=== PATIENT | male | born 1960 | race Caucasian/White ===

== ENCOUNTER 2016-10-11 10:22 | Inpatient (IN) | payer OTHER ==
[~2016-10-11] VITALS: Ht 185.4 cm; Wt 83.0 kg
[~2016-10-11 10:22] MED LIST: ALLOPURINOL100 MG PO; CITRATE OF MAG296 ML PO; HYDROCODON-ACE1 EAC7 PO; KEFLEX500 MG PO; LORATADINE10 M2 PO; NEURONTIN300 MG PO; PERCOCET 5/31 TABLET PO; TRAMADOL HCL50 MG PO; TYLENOL WITH C1 EACH PO
[2016-10-19 11:17] VITALS: BP 117/75
[2016-10-19 19:30] VITALS: BP 133/76
[2016-10-19 22:41] VITALS: BP 148/89
[2016-10-20 02:39] VITALS: BP 132/84
[2016-10-20 06:47] LABS: HEMATOCRIT 37.5 % (38.0-50.0); MCHC 35.5 G/DL (30.0-36.0); MCV 101.6 FL (86-99); MEAN PLAT.VOLUME 9.5 uM^3 (9.0-12.4); PLATELET COUNT 133 K/uL (156-360); RBC DIS.WIDTH-CV 12.2 % (11.8-14.6); RBC DIS.WIDTH-SD 44.9 % (39-53)
[2016-10-20 06:49] LABS: RED BLOOD COUNT 3.69 M/uL (4.00-5.50); WHITE BLOOD COUNT 6.3 K/uL (4.1-10.2)
[2016-10-20 07:09] LABS: ANION GAP 6 MEQ/L (2-14); CHLORIDE 103 MEQ/L (99-109); GFR ESTIMATE (CALCULATED) > 59 mL/min/; MAGNESIUM 1.7 mg/dl (1.3-2.7); POTASSIUM 4.2 MEQ/L (3.7-5.4); SAMPLE HEMOLYSIS CHECK 0; SAMPLE ICTERIC CHECK 0; SAMPLE LIPEMIA CHECK 0; SODIUM 135 MEQ/L (136-147); UREA NITROGEN (BUN) 5 mg/dL (9-23)
[2016-10-20 07:11] LABS: GLUCOSE 133 mg/dL (70-99)
[2016-10-20 08:05] VITALS: BP 106/66
[2016-10-20 10:56] VITALS: BP 111/70
[2016-10-20 16:17] VITALS: BP 116/78
[2016-10-20 19:12] VITALS: BP 119/72
[2016-10-20 23:40] VITALS: BP 129/77
[2016-10-21 04:20] VITALS: BP 127/81
[2016-10-21 06:12] LABS: HEMATOCRIT 40.2 % (38.0-50.0); MCH 34.3 PG (29.0-34.0); MCHC 33.1 G/DL (30.0-36.0); MCV 103.6 FL (86-99); MEAN PLAT.VOLUME 8.8 uM^3 (9.0-12.4); PLATELET COUNT 134 K/uL (156-360); RBC DIS.WIDTH-CV 12.8 % (11.8-14.6); RED BLOOD COUNT 3.88 M/uL (4.00-5.50); WHITE BLOOD COUNT 6.2 K/uL (4.1-10.2)
[2016-10-21 06:33] LABS: ANION GAP 5 MEQ/L (2-14); CHLORIDE 103 MEQ/L (99-109); GFR ESTIMATE (CALCULATED) > 59 mL/min/; GLUCOSE 109 mg/dL (70-99); MAGNESIUM 1.7 mg/dl (1.3-2.7); POTASSIUM 3.7 MEQ/L (3.7-5.4); SAMPLE HEMOLYSIS CHECK 0; SAMPLE ICTERIC CHECK 0; SAMPLE LIPEMIA CHECK 0; SODIUM 135 MEQ/L (136-147); UREA NITROGEN (BUN) 3 mg/dL (9-23)
[2016-10-21 08:28] VITALS: BP 135/81
[2016-10-21 16:26] VITALS: BP 141/75
[2016-10-21 19:31] VITALS: BP 135/82
[2016-10-21 23:59] VITALS: BP 126/72
[2016-10-22 02:43] VITALS: BP 121/75
[2016-10-22 06:18] LABS: HEMATOCRIT 36.1 % (38.0-50.0); MCH 34.9 PG (29.0-34.0); MCHC 34.6 G/DL (30.0-36.0); MCV 100.8 FL (86-99); MEAN PLAT.VOLUME 8.9 uM^3 (9.0-12.4); PLATELET COUNT 120 K/uL (156-360); RBC DIS.WIDTH-CV 12.3 % (11.8-14.6); RBC DIS.WIDTH-SD 45.4 % (39-53); RED BLOOD COUNT 3.58 M/uL (4.00-5.50); WHITE BLOOD COUNT 4.6 K/uL (4.1-10.2)
[2016-10-22 06:41] LABS: ANION GAP 5 MEQ/L (2-14); CHLORIDE 103 MEQ/L (99-109); GFR ESTIMATE (CALCULATED) > 59 mL/min/; GLUCOSE 99 mg/dL (70-99); MAGNESIUM 1.5 mg/dl (1.3-2.7); POTASSIUM 3.7 MEQ/L (3.7-5.4); SAMPLE HEMOLYSIS CHECK 0; SAMPLE ICTERIC CHECK 0; SAMPLE LIPEMIA CHECK 0; SODIUM 134 MEQ/L (136-147); UREA NITROGEN (BUN) 3 mg/dL (9-23)
[2016-10-22 08:44] VITALS: BP 129/84
[2016-10-22 11:18] VITALS: BP 139/80
[2016-10-22 17:01] VITALS: BP 151/88
[2016-10-22 20:07] VITALS: BP 133/80
[2016-10-22 23:03] VITALS: BP 118/60
[2016-10-23 02:57] VITALS: BP 132/80
[2016-10-23 06:11] LABS: HEMATOCRIT 35.5 % (38.0-50.0); MCH 34.6 PG (29.0-34.0); MCHC 34.6 G/DL (30.0-36.0); MCV 99.7 FL (86-99); PLATELET COUNT 128 K/uL (156-360); RBC DIS.WIDTH-CV 12.2 % (11.8-14.6); RBC DIS.WIDTH-SD 44.7 % (39-53); RED BLOOD COUNT 3.56 M/uL (4.00-5.50); WHITE BLOOD COUNT 4.2 K/uL (4.1-10.2)
[2016-10-23 06:41] LABS: ANION GAP 5 MEQ/L (2-14); CHLORIDE 101 MEQ/L (99-109); GFR ESTIMATE (CALCULATED) > 59 mL/min/; GLUCOSE 109 mg/dL (70-99); MAGNESIUM 1.6 mg/dl (1.3-2.7); POTASSIUM 3.5 MEQ/L (3.7-5.4); SAMPLE HEMOLYSIS CHECK 0; SAMPLE ICTERIC CHECK 0; SAMPLE LIPEMIA CHECK 0; SODIUM 133 MEQ/L (136-147); UREA NITROGEN (BUN) 3 mg/dL (9-23)
[2016-10-23 08:02] VITALS: BP 135/75
[2016-10-23 16:04] VITALS: BP 132/76
[2016-10-23 19:45] VITALS: BP 148/85
[2016-10-23 23:56] VITALS: BP 141/83
[2016-10-24 04:27] VITALS: BP 141/80
[2016-10-24 06:54] LABS: HEMATOCRIT 34.6 % (38.0-50.0); MCH 35.5 PG (29.0-34.0); MCHC 35.3 G/DL (30.0-36.0); MCV 100.6 FL (86-99); MEAN PLAT.VOLUME 9.1 uM^3 (9.0-12.4); PLATELET COUNT 153 K/uL (156-360); RBC DIS.WIDTH-CV 12.4 % (11.8-14.6); RBC DIS.WIDTH-SD 45.4 % (39-53); RED BLOOD COUNT 3.44 M/uL (4.00-5.50); WHITE BLOOD COUNT 3.6 K/uL (4.1-10.2)
[2016-10-24 07:24] LABS: ANION GAP 7 MEQ/L (2-14); CHLORIDE 102 MEQ/L (99-109); GFR ESTIMATE (CALCULATED) > 59 mL/min/; GLUCOSE 102 mg/dL (70-99); MAGNESIUM 1.8 mg/dl (1.3-2.7); POTASSIUM 3.2 MEQ/L (3.7-5.4); SAMPLE HEMOLYSIS CHECK 0; SAMPLE ICTERIC CHECK 0; SAMPLE LIPEMIA CHECK 0; SODIUM 134 MEQ/L (136-147); UREA NITROGEN (BUN) 4 mg/dL (9-23)
[2016-10-24 09:22] VITALS: BP 145/78
[2016-10-24] MEDS ORDERED: OXYCODONE HCL5 MG PO (11:21)
[2016-10-24 13:02] VITALS: BP 141/77
[2016-10-24 16:26] VITALS: BP 139/83
== END 2016-10-24 17:43 | disposition home or self-care (01) | DRG 345 ==
LOC: 2SOUTH 10:22 → 5EAST 10-19 10:28 → 2SOUTH 10-19 10:28 → 5EAST 10-19 17:58
PROVIDERS: Surgery
DX: Z43.3 Encounter for attention to colostomy (principal); C18.9 Malignant neoplasm of colon, unspecified; K43.5 Parastomal hernia without obstruction or gangrene; F10.21 Alcohol dependence, in remission; K40.90 Unilateral inguinal hernia, without obstruction or gangrene, not specified as recurrent; I70.90 Unspecified atherosclerosis; Z87.891 Personal history of nicotine dependence
CPT/HCPCS: 36415; 80048; 83735; 84100; 85025; 85027; 88304; 94799; J0330; J1100; J1170; J1650; J2405; J2710; J3010; J7030; J7040